=== PATIENT | male | born 1945 | race African-American/Black ===

== ENCOUNTER 2016-06-29 08:09 | Inpatient (IN) ==
--- NOTE | 2016-06-28 20:55 | Discharge Summary ---
<Ewelina Anand - Last Filed: 06/28/16 20:53> Date of Encounter: 06/28/16 - Discharge Diagnosis (1) Rotator cuff tear arthropathy of right shoulder Priority: Primary Status: Acute - Discharge Medications Home Medications: Amlodipine [Norvasc] 5 mg PO DAILY 12/09/15 [History] Aspirin Enteric Coated [Aspirin EC] 81 mg PO DAILY 12/09/15 [History] Dorzolamide HCl/Timolol Maleat [Dorzolamide-Timolol Eye Drops] 1 drop BOTH EYES BID 12/09/15 [History] Lisinopril 40 mg PO DAILY 12/09/15 [History] OxyCODONE Immed Rel [Roxicodone 5 MG] 5 - 10 mg PO Q6HR PRN #40 tablet 06/28/16 [Rx] HYDROcodone/Acet 5/325 mg [[place] 5-325 mg] 1 tab PO Q6H PRN 06/29/16 [History] Multivit-Min/FA/Lycopen/Lutein [Men 50 Plus Multivitamin Tab] 1 tab PO DAILY [History] Naproxen Sodium [Aleve] 220 mg PO BID PRN 06/29/16 [History] Allergies/Adverse Reactions: Allergies No Known Allergies Allergy (Verified 12/09/15 07:26) Primary care physician: Marcos Fritz MD - Patient Status Disposition: Home, Self-Care Condition: Good - Discharge Instructions Follow Up With: Christopher Mendenhall MD [Partnered Physician] - 07/28/16 10:15 am Ewelina Anand PAC [Physician Life Claims Examiner] - 07/10/16 10:30 am Marcos Fritz MD [Primary Care Provider] - 08/11/16 9:00 am Mauricio Mckeon Jr, MD [Partnered Physician] - 12/24/16 10:30 am - Hospital Course Hospital course: Mr. Rivera is a 71 year old male - Time Spent with Patient Total time spent providing and/or coordinating discharge services: <Christopher Mendenhall - Last Filed: 06/30/16 06:26> Date of Encounter: 06/30/16 Time of Encounter: 06:26 Primary care physician: Marcos Fritz MD - Patient Status Functional capacity at discharge: independent ambulation Overall status at discharge: patient is progressing back to baseline - Hospital Course Hospital course: Mr. Rivera is a 71 year old male The patient had an uneventful postoperative course. They received antibiotics and physical therapy and were discharged in stable condition. There will follow -up in the office in 2 weeks. - Time Spent with Patient Total time spent providing and/or coordinating discharge services:
--- NOTE | 2016-06-29 08:16 | History & Physical Report ---
Date of Encounter: 06/29/16 Time of Encounter: 08:16 24 Hour HP Update - Instructions Instructions: If the History and Physical is less than 30 days old and was completed prior to A.M. admission and or procedure and has NOT been updated on calendar day of procedure please complete this update prior to performing procedure. - Update Patient reports changes in Medical Condition: No Changes in assessment/condition: No Changes in Medication: No Preop tests/diagnostics Reviewed: Yes Surgery Remains Indicated: Yes Consent for Planned Operative Procedure(s) Verified: Yes - Pre-Operative Checklist Preoperative Checklist Indicated: No Prophylactic Antibiotic Ordered: Yes Is VTE Prophylaxis Indicated?: Yes
[2016-06-29] MEDS ORDERED: CeFAZolin Pre 2,000 MG/100 ML 2,000 MG/100 ML BAG IVPB ONE (08:50)
--- NOTE | 2016-06-29 08:51 | Anesthesia Evaluation PreOp ---
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) Other Medical History: Denies Any Significant HX Anesthesia History: No Prior Anesthetic Complications Alcohol Use: none Drug use: none Medications and Allergies Amlodipine [Norvasc] 5 mg PO DAILY 12/09/15 [History] Aspirin Enteric Coated [Aspirin EC] 81 mg PO DAILY 12/09/15 [History] Dorzolamide HCl/Timolol Maleat [Dorzolamide-Timolol Eye Drops] 1 drop BOTH EYES BID 12/09/15 [History] Lisinopril 40 mg PO DAILY 12/09/15 [History] OxyCODONE Immed Rel [Roxicodone 5 MG] 5 - 10 mg PO Q6HR PRN #40 tablet 06/28/16 [Rx] Allergies No Known Allergies Allergy (Verified 12/09/15 07:26) - Meds/Allergy Pre-op Review Medications Reviewed: Yes Allergies Reviewed: Yes Beta Blockers on Current Med List: No Anesthesia Results - Labs Laboratory Tests 06/16/16 06/16/16 06/16/16 11:15 11:15 11:15 WBC 5.7 Hgb 13.8 Hct 40.0 Plt Count 241 PT 12.3 H INR 1.1 APTT 30.6 Sodium 139 Potassium 4.0 Chloride 107 Carbon Dioxide 22 BUN 13 Creatinine 1.18 Est GFR ( Amer) > 60 Est GFR (Non-Af Amer) > 60 BUN/Creatinine Ratio 11 - Imaging EKG: report reviewed, image reviewed (SR) Anesthesia Exam Last Vital Signs Temp 98.2 F 06/29/16 08:28 Pulse 88 06/29/16 08:28 Resp 18 06/29/16 08:28 BP 146/93 06/29/16 08:28 Pulse Ox 96 06/29/16 08:28 Weight: 79 kg NPO (# of Hours): >> 8 hrs - HEENT Pupil (Motor): Pupils equal, EOMI Mallampati: II Teeth: Poor dentition Oral Opening: Greater than 3 - ASSEMBLER TUBING LOC: Oriented - Cardiac Rhythm: Regular Murmur: None - Pulmonary Breath Sounds: bilateral Clear Respiratory Effort: Symmetrical Anesthesia Assess/Plan ASA Score: 2 Modified Mary D Scale for Level of Consciousness: Cooperative, oriented, and tranquil Anesthetic Plan: General, Regional Monitoring Plan: Standard Monitors Recovery Plan: PACU
[2016-06-29] MEDS ORDERED: *HR* FentaNYL (PF) 100 MCG/2 ML VIAL ONE (09:09)
[2016-06-29] MEDS ORDERED: *HR* Midazolam HCl 2 MG/2 ML VIAL ONE (09:09)
[2016-06-29] MEDS ORDERED: *HR* Propofol 200 MG/20 ML VIAL IVP ONE (09:10)
[2016-06-29] MEDS ORDERED: Lidocaine -MPF 2% 2 ML VIAL ONE (09:10)
[2016-06-29] MEDS: Ringers Solution, Lactated 1,000 ML IVC SCH ×4 (09:18→21:05)
[2016-06-29] MEDS ORDERED: Bupivacaine-MPF 0.25% 10 ML VIAL ONE (10:04)
--- NOTE | 2016-06-29 10:26 | Anesthesia Procedures ---
Date of Encounter: 06/29/16 Time of Encounter: 10:24 Procedures: Anesthesia - Nerve Block Procedure Date: 06/29/16 Time: 10:24 Allergies/Adv Reactions: Allergies No Known Allergies Allergy (Verified 12/09/15 07:26) Pre-op Diagnosis: right rotator cuff arthropathy Surgical Procedure: right shoulder reverse ball Checklist: Correct Patient Identifier, Correct procedure, History checked Correct side: Right Blood Thinner: No Monitor Applied: EKG, BP, Pulse Oximetry Supplemental Oxygen via Nasal Cannula (L/min): 2 Sedation: Versed (mg): 2 Sedation: Fentanyl (mcg): 100 Indication: Post Op Analgesia Pre-op Neuro Deficits: No Block Type: Supraclavicular Catheter placed: No Sterile Technique: Yes Ultrasound used: Yes Anatomy identified: Yes Visual spread of Local: Yes Neuro Stimulation: Yes Nerve Stimulator Range: 0.2 - 0.4 mA Blood on Needle Aspiration: No Smooth Injection of Local: Yes Pain with Injection of Local: No Prep: Chlorhexadine Needle: 22 x 50 mm Stimuplex Local: 0.25% Bupivicaine w/Clonidine 20 mcg/cc Volume (cc): 30 Number of Attempts: 1 Complications: None/effective block Vitals: Vital Signs/O2 Sat, Most Current Temp Pulse Resp BP Pulse Ox 98.2 F 79 18 132/84 98 06/29/16 08:58 06/29/16 10:15 06/29/16 08:58 06/29/16 10:15 06/29/16 10:15 Comments: peripheral nerve block with ultrasound for postoperative pain relief per dr warren request
[2016-06-29] MEDS ORDERED: *HR* Labetalol 100 MG/20 ML MDV IVP PRN (10:27)
--- NOTE | 2016-06-29 11:18 | Orthopedic Operative Note ---
Date of procedure: 06/29/16 Pre-op diagnosis: Right shoulder cuff tear arthropathy Post-op diagnosis: same Procedure: Procedure: Right Total Shoulder Replacment Reverse, biceps tenodesis Estimated blood loss: 100 cc Hardware:Arthrex large glenoid baseplate, 2 4.5 screws. 1 6.5 screw, 42 lateral glenosphere, 13 humeral stem, poly insert 3 and 6 metal Exam Under anesthesia: Full motion and no instability Procedural Notes: Irreparable tear supraspinatus tendon grade 4 arthritic changes humeral head Operative procedure: The patient was brought to the operating room and placed on the operating room table. After general anesthesia was administered the operative shoulder was examined. Findings were noted. The patient was placed in the modified beachchair position. All pressure points were padded appropriately. And the head was stabilized in the neutral position. The operative extremity was prepped and draped in the sterile surgical fashion. The patient received IV antibiotics prior to skin incision. A standard deltopectoral approach was made to the operative shoulder. Incision was made to the skin and subcutaneous tissue,hemo stasis was obtained with Bovie cautery. Using careful blunt dissection the cephalic vein was identified and mobilized medially. The deltopectoral interval was developed and the clavipectoral fascia was incised. The subscap was released off the lesser tuberosity and tagged with #2 FiberWire suture. The humerus was dislocated patient noted to have irreparable tear supraspinatus tendon, and the humeral cut was made along the anatomic neck, patient noted to have grade 4 arthritic changes humeral head.. Anterior and posterior Bankart retractors were placed to expose the glenoid. The glenoid guide was seated and the centering hole was made. It was reamed with the appropriate reamer. The large baseplate was seated and secured with (2) 4.5 screws and one 6.5 screw. The baseplate was irrigated and dried and the 42 lateral Glenosphere was seated and secured with the Garcia taper. The Garcia taper was tested and found to be secure the humerus was redislocated and prepared with the diaphyseal reamers, followed by a broaching process up to the appropriate size 13 in the patient's anatomic version. The metaphyseal reamer was then utilized. Trial reduction found the shoulder to be relocatable. Trial components were removed and drill holes were placed in the lesser tuberosity. They were filled with #5 FiberWire suture. These sutures were used for a subscap repair. The appropriate 13 stem was impacted in place in the patient's anatomic version. Trial reduction found the shoulder to be relocatable and stable with the appropriate 6 metal 3 Abida Trial component was removed and the real 6 metal 3 Abida was seated and secured the shoulder was reduced. The shoulder had excellent motion and excellent stability and no evidence of dislocation. The deep tissue was irrigated with pulse irrigation. The subscap was repaired. The deltopectoral interval was closed with a running #1 PDS suture, subcutaneous tissue was irrigated and closed with 0 PDS suture, the skin was closed with Dermabond. The patient was placed in a sterile dressing, abduction brace and extubated. The patient was then transferred to the recovery room in stable condition. Anesthesia: GETA Surgeon: Christopher Mendenhall Condition: stable Disposition: PACU
[2016-06-29] MEDS: *HR* HYDROmorphone (PF) 1 MG/ML SYRINGE IVP PRN ×2 (11:37→11:42)
[2016-06-29 11:56] LABS: Hematocrit 36.3 % (37.5-50.1); Hemoglobin 12.1 g/dL (12.9-16.9)
[2016-06-29] MEDS ORDERED: Acetaminophen 325 MG TABLET PO PRN (12:20)
[2016-06-29] MEDS ORDERED: Sennosides 8.6 MG TABLET PO PRN (12:20)
[2016-06-29] MEDS ORDERED: *HR* OxyCODONE Immed Rel 5 MG TABLET PO PRN (12:20)
[2016-06-29] MEDS ORDERED: Ondansetron 4 MG/2 ML VIAL IVP PRN (12:20)
[2016-06-29] MEDS ORDERED: MOM Conc 10 ML UD.LIQ PO PRN (12:20)
[2016-06-29] MEDS ORDERED: Temazepam 15 MG CAPSULE PO PRN (12:20)
[2016-06-29] MEDS ORDERED: Naloxone 0.4 MG/ML INJ IVP PRN (12:20)
--- NOTE | 2016-06-29 12:24 | Anesthesia Evaluation Post Op ---
Date of Encounter: 06/29/16 Time of Encounter: 12:22 - Vital Signs Vital Signs: Vital Signs/O2 Sat, Most Current Temp Pulse Resp BP Pulse Ox 97.4 F L 77 16 123/92 96 06/29/16 12:13 06/29/16 12:13 06/29/16 12:13 06/29/16 12:13 06/29/16 12:13 - Lungs Lungs: Clear Ascult./Percussion - Airway Airway: Non-obstructed - Cardiovascular Regular Rate - Mental Status Mental Status: Alert & Oriented, Answers Appropriately - Pain Pain Scale: 0 Pain Scale used: Numeric (1 - 10) - Nausea Vomiting Nausea Vomiting: Not Present - Hydration Hydration: NPO - Discharge PostOp Status: Transfer Patient to floor
[2016-06-29] MEDS: *HR* Enoxaparin 30 MG/0.3 ML SYRINGE SQ SCH (17:18)
[2016-06-29] MEDS: ceFAZolin 2,000 MG in D5% in Water 100 ML IVPB SCH ×2 (17:19→23:57)
[2016-06-29] MEDS ORDERED: *HR* Enoxaparin 30 MG/0.3 ML SYRINGE SQ SCH (18:00)
[2016-06-29] MEDS: Dorzolamide/Timolol OPTH 10 ML BOTTLE BOTH EYES SCH (21:04)
[2016-06-29] MEDS: *HR* OxyCODONE Immed Rel 5 MG TABLET PO PRN (23:56)
[2016-06-30] MEDS: *HR* HYDROmorphone (PF) 1 MG/ML SYRINGE IVP PRN ×2 (02:02→10:56)
[2016-06-30 03:34] LABS: Hematocrit 34.3 % (37.5-50.1); Hemoglobin 11.5 g/dL (12.9-16.9)
[2016-06-30] MEDS: *HR* OxyCODONE Immed Rel 5 MG TABLET PO PRN ×4 (05:36→20:16)
[2016-06-30] MEDS: *HR* Enoxaparin 30 MG/0.3 ML SYRINGE SQ SCH ×2 (05:37→17:28)
--- NOTE | 2016-06-30 06:27 | Orthopedics Progress Note ---
Date of Encounter: 06/30/16 Time of Encounter: 06:26 Subjective Interval history: Patient was seen this morning doing well without complaints. Afebrile vital signs stable. Operative extremity: Neurovascularly intact Dressing clean dry and intact Calves nontender Assessment and plan: Continue with postoperative care Hematocrit 34 discharged today Objective Vital signs: Vital Signs Temp Pulse Resp BP Pulse Ox 06/30/16 03:51 98.9 F 100 18 148/88 97 06/30/16 00:00 98.7 F 97 17 143/83 96 06/29/16 19:40 97.9 F 95 19 132/69 96 06/29/16 15:30 97.5 F L 91 16 129/61 96 06/29/16 14:30 86 14 145/91 93 L 06/29/16 13:30 97.7 F 82 15 136/72 98 06/29/16 12:58 97.7 F 82 16 131/82 96 06/29/16 12:30 97.6 F 78 14 126/80 95 06/29/16 12:13 97.4 F L 77 16 123/92 96 06/29/16 12:03 97.4 F L 79 16 119/78 96 06/29/16 11:53 80 14 102/76 96 06/29/16 11:43 84 16 129/76 96 06/29/16 11:33 97.6 F 92 20 135/69 94 L 06/29/16 10:15 79 132/84 98 06/29/16 10:03 75 156/88 99 06/29/16 08:58 98.2 F 88 18 146/93 96 06/29/16 08:28 98.2 F 88 18 146/93 96 Intake and Output 06/29/16 06/29/16 06/30/16 15:59 23:59 07:59 Intake Total 1100 / 1100 1500 / 1500 900 / 900 Output Total 100 / 100 1000 / 1000 1000 / 1000 Balance 1000 / 1000 500 / 500 -100 / -100 Intake: IV Fluids 1100 / 1100 1100 / 1100 100 / 100 Lactated Ringers 1,000 ML 1000 / 1000 1000 / 1000 @ 75 mls/hr IVC .[id number] MOOKIE Rx#:[id number] Ancef 2,000 MG In 100 / 100 100 / 100 Dextrose 5% 100 ML @ 200 mls/hr IVPB Q8H MOOKIE Rx#: [id number] Ancef Premix 2,000 MG/100 100 / 100 ML 2,000 mg In 100 ml @ 200 mls/hr IVPB PREOP ONE Rx#:[id number] Oral 400 / 400 800 / 800 Output: Urine 1000 / 1000 1000 / 1000 Estimated Blood Loss 100 / 100 Other: # Voids 1 Weight 79.379 kg - Labs CBC & BMP: 06/30/16 03:19 Labs: Abnormal lab results Hgb 11.5 g/dL (12.9-16.9) L 06/30/16 03:19 Hct 34.3 % (37.5-50.1) L 06/30/16 03:19 - VTE Documentation of Mechanical Device: Venous foot pump, device Consult Discharge Plan - Plan Referrals: Christopher Mendenhall MD [Partnered Physician] - 07/28/16 10:15 am Ewelina Anand, PAC [Physician Windows Systems Admin] - 07/10/16 10:30 am Marcos Fritz MD [Primary Care Provider] - 08/11/16 9:00 am Mauricio Mckeon Jr, MD [Partnered Physician] - 12/24/16 10:30 am
[2016-06-30] MEDS: Lisinopril 20 MG TABLET PO SCH (09:22)
[2016-06-30] MEDS: Aspirin Enteric Coated 81 MG Tablet PO SCH (09:23)
[2016-06-30] MEDS: Dorzolamide/Timolol OPTH 10 ML BOTTLE BOTH EYES SCH ×2 (09:23→19:52)
[2016-06-30] MEDS: amLODIPine 5 MG TABLET PO SCH (09:23)
[2016-06-30] MEDS: Multivit/Ca/Min/Fe/FA 1 TAB TABLET PO SCH (09:23)
[2016-06-30 14:58] LABS: BUN/Creatinine Ratio 13 (6-26); Blood Urea Nitrogen 17 mg/dL (8-26); Calcium 9.2 mg/dL (8.6-10.8); Carbon Dioxide 22 mEq/L (19-29); Chloride 104 mEq/L (98-109); Glucose 181 mg/dL (70-99); Osmolality,Calculated 288 (280-300); Potassium 4.9 mEq/L (3.5-4.5); Sodium 136 mEq/L (136-145); eGFR For African Americans > 60 (> 60); eGFR For Non-African Americans 52 (> 60)
[2016-06-30 15:17] LABS: ABG Base Excess 1.1 mEq/L (-2.0 to 3.0); ABG HCO3 26.6 mEQ/L (21-27); ABG Oxygen Saturation 89 % (95-98); ABG PCO2 45 mmHg (35-45); ABG PH 7.38 pH Units (7.32-7.45); ABG PO2 58 mmHg (85-104); Blood Gas FiO2 28 %; Blood Gas Liter Flow 2 L/MIN
--- NOTE | 2016-06-30 18:53 | Internal Medicine Consult Note ---
Date of Encounter: 06/30/16 Time of Encounter: 18:48 - Assessment and Plan (1) Shortness of breath Status: Acute Assessment and plan: likely COPD exacerbation : plan -blood culture - IV antibiotics - IV steroids - Inhaled BDAs if no contraindication from ortho then hospitalist will be happy to take over. Internal Medicine - CN: HPI - Data of Consult Patient: new to practice Consult date: 06/30/16 Requesting Physician: Christopher Mendenhall MD - Consult Narrative History of present illness: Mr. Rivera is a 71 year old male who underwent right shoulder surgery yesterday. patient was supposed to go home and it was noted that he had episode of desaturation. his Oxygen saturation was 85 on RA and with supplimental oxygen it was above 92%. patient. patient denied chest pain or dizziness. patient is known smoker and stopped smoking 8 weeks back. he used to smoke more than a pack a day for more than 50 years. patient underwent CTA and it was negative for PE. Past Med Surg Social Fam HX - Past Medical History Medical history: hypertension, other Psychiatric history: no psych history - Past Surgical History Surgical History: cataract - Social History Smoking Status: Former smoker Smokeless Tobacco Status: No Alcohol use: none Drug use: none - Family History Mother Hx Family Cancer: Yes (pancreatic) Father Hx Family Endocrine Disorder: Yes (DM) All systems: reviewed and no additional remarkable complaints except as stated Internal Medicine - CN: Meds Amlodipine [Norvasc] 5 mg PO DAILY 12/09/15 [History] Aspirin Enteric Coated [Aspirin EC] 81 mg PO DAILY 12/09/15 [History] Dorzolamide HCl/Timolol Maleat [Dorzolamide-Timolol Eye Drops] 1 drop BOTH EYES BID 12/09/15 [History] Lisinopril 40 mg PO DAILY 12/09/15 [History] OxyCODONE Immed Rel [Roxicodone 5 MG] 5 - 10 mg PO Q6HR PRN #40 tablet 06/28/16 [Rx] HYDROcodone/Acet 5/325 mg [[place] 5-325 mg] 1 tab PO Q6H PRN 06/29/16 [History] Multivit-Min/FA/Lycopen/Lutein [Men 50 Plus Multivitamin Tab] 1 tab PO DAILY [History] Naproxen Sodium [Aleve] 220 mg PO BID PRN 06/29/16 [History] Albuterol Sulfate [Albuterol Inhaler] 2 puff IH Q4HR PRN #1 hfa.aer.ad 07/01/16 [Rx] Budesonide/Formoterol 80/4.5 [Symbicort 80/4.5] 1 gm IH BIDR #1 hfa.aer.ad 05/19 [Rx] Levofloxacin 750 mg PO DAILY #3 tablet 07/01/16 [Rx] PredniSONE 10 mg PO DAILY #7 tablet 07/01/16 [Rx] Allergies No Known Allergies Allergy (Verified 12/09/15 07:26) Internal Medicine - CN: Exam - Constitutional Vitals: Temp Pulse Resp BP Pulse Ox 99.6 F 93 18 146/77 92 L 06/30/16 15:38 06/30/16 15:38 06/30/16 15:38 06/30/16 15:38 06/30/16 15:38 General appearance IM: Present: A&O X 3, pleasant, no acute distress, answers questions appropriately Exam: i have examined this patient. examination of HEENT is with in normal limits. Respiratory and cardiac system does not have any abnormality except occasional wheeze. abdomen is soft and non tender. 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 skin is intact. - Head Head exam: Present: atraumatic - Eye Eye exam: Present: PERRL - ENT ENT exam: Present: normal exam - Neck Neck exam general surgery: Present: full ROM - Respiratory Respiratory exam: Present: CTAB Internal Medicine - CN: Reslt - Labs CBC & Chem 7: 07/01/16 03:49 06/30/16 14:33 Labs: Short CBC 06/30/16 Range/Units 03:19 Hgb 11.5 L (12.9-16.9) g/dL Hct 34.3 L (37.5-50.1) % BMP 06/30/16 14:33 Sodium 136 Potassium 4.9 H Chloride 104 Carbon Dioxide 22 BUN 17 Creatinine 1.35 H Glucose 181 H Calcium 9.2 - ABG Interpretation ABG results: ABG ABG pH 7.38 pH Units (7.32-7.45) 06/30/16 15:02 ABG pCO2 45 mmHg (35-45) 06/30/16 15:02 ABG pO2 58 mmHg (85-104) L 06/30/16 15:02 ABG O2 Saturation 89 % (95-98) L 06/30/16 15:02 - Impressions Impressions Chest CTA 06/30/16 13:47 IMPRESSION: 1. No pulmonary embolus. 2. No acute cardiopulmonary disease. 3. Probable scarring identified in the right upper lobe, however, no prior studies are available for comparison. Recommend repeat chest CT without contrast in 6 months to ensure stability. 4. Moderate emphysema. 5. Postoperative changes compatible with right shoulder arthroplasty. D/ / 06/30/2016 17:06:18 Leonie Prather MD / britany Interpreting Provider: Leonie Prather MD Consult Discharge Plan - Plan Instructions: Using Oxygen at Home (DC) Additional Instructions: Discharge Instructions: Total Shoulder Please call [facility] ([phone]), your Primary Care Physician, or report to the Emergency Room if you have any of the following symptoms: Nausea, vomiting, fever greater that 101.5, swelling, chest pain, shortness of breath, increased pain/redness/drainage/odor for your incision site, numbness/ tingling, or any other concerning symptoms. ACTIVITY: Always keep your arm in the sling. Do not raise your arm away from your body. Do not use your arm to help with getting in or out of bed. No weight bearing permitted. Only perform those exercises given to you by your therapist. MEDICATIONS: Upon discharge resume your home medications. Take all the medications as prescribed. Take a stool softener if taking narcotic pain medications. Stool softeners are only effective if you drink enough fluids. Drink 6-8 glass of water or fluids a day, unless this is not allowed for another health problem. Despite using stool softeners, if you haven't had a bowel movement in 3 days, please switch to a gentle laxative. Gentle laxatives are sold over the counter. You should have a bowel movement within 24 hours, if not call the office. You will be discharged from the hospital with a prescription for pain medication. You are encouraged to decrease the use of narcotic pain medication as tolerated. Should you require a refill, please call the office. [facility] prescribes narcotic pain medication for only 4-6 weeks after surgery. If you require pain medication beyond this time period, you may be referred to your Primary Care Physician or to the Pain Clinic for further evaluation. Plan ahead for refills on pain medication as many narcotics either need to be picked up at the office or mailed. It is best to call 48-72 hours in advance of needing a prescription refill so you don't run out of medication. To help control the post-operative pain, you may take NSAIDs (Aleve,Advil, Motrin, ibuprofen, naprosyn) or Tylenol as prescribed on the bottle in addition to the pain medication. WOUND CARE: Leave the dressing on for 7 days. You may change the dressing if it becomes saturated greater than 50%. You can shower but not a tub bath or submerge your incision in water. Wash your hands with antibacterial soap, rinse and dry prior to any wound care. If you have alberto the visiting nurse or rehab facility can remove the stapes 10-14 days after surgery and place steri -strips across the wound. Leave the steri-strips in place until they fall off on their won. You may let water from the shower run on top of the steri- stirips. If you do not have a visiting nurse or rehab facility, you will need to return to the office at 10-14 days for the alberto to be removed. FOLLOW-UP: Please follow up with your surgeon in the orthopedic clinic, as scheduled Referrals: Christopher Mendenhall MD [Partnered Physician] - 07/28/16 10:15 am Ewelina Anand PAC [Physician Traffic Maintenance Officer] - 07/10/16 10:30 am Marcos Fritz MD [Primary Care Provider] - 08/11/16 9:00 am Mauricio Mckeon Jr, MD [Partnered Physician] - 12/24/16 10:30 am Prescriptions: Albuterol Sulfate [Albuterol Inhaler] 2 puff IH Q4HR PRN #1 hfa.aer.ad PRN Reason: wheezing shortness of breath Budesonide/Formoterol 80/4.5 [Symbicort 80/4.5] 1 gm IH BIDR #1 hfa.aer.ad Levofloxacin 750 mg PO DAILY #3 tablet PredniSONE 10 mg PO DAILY #7 tablet
[2016-06-30] MEDS ORDERED: Levofloxacin 750 MG/150 ML 750 MG/150 ML BAG IVPB SCH (20:00)
[2016-06-30] MEDS: Ipratropium/Albuterol Neb 3 ML IH SCH (21:36)
[2016-06-30] MEDS: MethylPREDNISolone 40 MG/ML VIAL IVP SCH (23:31)
[2016-07-01] MEDS: Ipratropium/Albuterol Neb 3 ML IH SCH ×5 (00:10→16:08)
[2016-07-01 04:22] LABS: Hematocrit 30.7 % (37.5-50.1); Hemoglobin 10.8 g/dL (12.9-16.9)
[2016-07-01] MEDS: *HR* Enoxaparin 30 MG/0.3 ML SYRINGE SQ SCH (05:28)
--- NOTE | 2016-07-01 07:49 | Orthopedics Progress Note ---
Date of Encounter: 07/01/16 Time of Encounter: 07:49 Subjective Interval history: Patient was seen this morning doing well without complaints. Doing better this morning Afebrile vital signs stable. Operative extremity: Neurovascularly intact Dressing clean dry and intact Calves nontender Assessment and plan: Continue with postoperative care discharged today Objective Vital signs: Vital Signs Temp Pulse Resp BP Pulse Ox 07/01/16 07:30 16 94 L 07/01/16 06:36 98.2 F 94 16 135/76 94 L 07/01/16 05:23 99.0 F 93 16 130/77 93 L 07/01/16 04:32 18 94 L 07/01/16 00:31 100.9 F H 93 16 148/69 93 L 07/01/16 00:12 18 95 06/30/16 20:15 100.4 F H 104 17 138/76 95 06/30/16 20:00 95 06/30/16 15:38 99.6 F 93 18 146/77 92 L 06/30/16 13:14 96 06/30/16 13:13 69 L 06/30/16 11:15 98.7 F 83 16 134/55 93 L 06/30/16 09:15 99 16 130/72 94 L 06/30/16 09:13 72 L Intake and Output 06/30/16 06/30/16 07/01/16 15:59 23:59 07:59 Intake Total 150 / 150 Output Total 450 / 450 Balance -300 / -300 Intake: IV Fluids 150 / 150 Levaquin 750mg/150 mL 750 150 / 150 mg In 150 ml @ 100 mls/ hr IVPB Q24H [facility] Rx#: [id number] Output: Urine 450 / 450 Other: # Voids 1 - Labs CBC & BMP: 07/01/16 03:49 06/30/16 14:33 Labs: Abnormal lab results Hgb 10.8 g/dL (12.9-16.9) L 07/01/16 03:49 Hct 30.7 % (37.5-50.1) L 07/01/16 03:49 ABG pO2 58 mmHg (85-104) L 06/30/16 15:02 ABG Total CO2 28.0 mEq/L (20-26) H 06/30/16 15:02 ABG O2 Saturation 89 % (95-98) L 06/30/16 15:02 Potassium 4.9 mEq/L (3.5-4.5) H 06/30/16 14:33 Creatinine 1.35 mg/dL (0.72-1.25) H 06/30/16 14:33 Est GFR (Non-Af Amer) 52 (> 60) L 06/30/16 14:33 Glucose 181 mg/dL (70-99) H 06/30/16 14:33 - VTE Documentation of Mechanical Device: Venous foot pump, device Consult Discharge Plan - Plan Instructions: Using Oxygen at Home (DC) Additional Instructions: Discharge Instructions: Total Shoulder Please call [facility] ([phone]), your Primary Care Physician, or report to the Emergency Room if you have any of the following symptoms: Nausea, vomiting, fever greater that 101.5, swelling, chest pain, shortness of breath, increased pain/redness/drainage/odor for your incision site, numbness/ tingling, or any other concerning symptoms. ACTIVITY: Always keep your arm in the sling. Do not raise your arm away from your body. Do not use your arm to help with getting in or out of bed. No weight bearing permitted. Only perform those exercises given to you by your therapist. MEDICATIONS: Upon discharge resume your home medications. Take all the medications as prescribed. Take a stool softener if taking narcotic pain medications. Stool softeners are only effective if you drink enough fluids. Drink 6-8 glass of water or fluids a day, unless this is not allowed for another health problem. Despite using stool softeners, if you haven't had a bowel movement in 3 days, please switch to a gentle laxative. Gentle laxatives are sold over the counter. You should have a bowel movement within 24 hours, if not call the office. You will be discharged from the hospital with a prescription for pain medication. You are encouraged to decrease the use of narcotic pain medication as tolerated. Should you require a refill, please call the office. [facility] prescribes narcotic pain medication for only 4-6 weeks after surgery. If you require pain medication beyond this time period, you may be referred to your Primary Care Physician or to the Pain Clinic for further evaluation. Plan ahead for refills on pain medication as many narcotics either need to be picked up at the office or mailed. It is best to call 48-72 hours in advance of needing a prescription refill so you don't run out of medication. To help control the post-operative pain, you may take NSAIDs (Aleve,Advil, Motrin, ibuprofen, naprosyn) or Tylenol as prescribed on the bottle in addition to the pain medication. WOUND CARE: Leave the dressing on for 7 days. You may change the dressing if it becomes saturated greater than 50%. You can shower but not a tub bath or submerge your incision in water. Wash your hands with antibacterial soap, rinse and dry prior to any wound care. If you have alberto the visiting nurse or rehab facility can remove the stapes 10-14 days after surgery and place steri -strips across the wound. Leave the steri-strips in place until they fall off on their won. You may let water from the shower run on top of the steri- stirips. If you do not have a visiting nurse or rehab facility, you will need to return to the office at 10-14 days for the alberto to be removed. FOLLOW-UP: Please follow up with your surgeon in the orthopedic clinic, as scheduled Referrals: Christopher Mendenhall MD [Partnered Physician] - 07/28/16 10:15 am Ewelina Anand PAC [Physician Foreign Clerk] - 07/10/16 10:30 am Marcos Fritz MD [Primary Care Provider] - 08/11/16 9:00 am Mauricio Mckeon Jr, MD [Partnered Physician] - 12/24/16 10:30 am
[2016-07-01] MEDS: Aspirin Enteric Coated 81 MG Tablet PO SCH (07:54)
[2016-07-01] MEDS: Multivit/Ca/Min/Fe/FA 1 TAB TABLET PO SCH (07:54)
[2016-07-01] MEDS: amLODIPine 5 MG TABLET PO SCH (07:55)
[2016-07-01] MEDS: Lisinopril 20 MG TABLET PO SCH (07:55)
[2016-07-01] MEDS: MethylPREDNISolone 40 MG/ML VIAL IVP SCH ×2 (07:55→16:36)
[2016-07-01] MEDS: *HR* OxyCODONE Immed Rel 5 MG TABLET PO PRN ×2 (08:09→18:17)
[2016-07-01] MEDS: Dorzolamide/Timolol OPTH 10 ML BOTTLE BOTH EYES SCH (08:09)
[2016-07-01 11:13] VITALS: BP 124/73
--- NOTE | 2016-07-01 15:51 | Discharge Summary ---
<Mauricio Sullivan - Last Filed: 07/01/16 15:56> Date of Encounter: 07/01/16 Time of Encounter: 15:48 - Discharge Diagnosis (1) Shortness of breath Priority: Secondary Status: Acute Comments: resolved. Likely from COPD. (2) Hypoxemic respiratory failure, chronic Priority: Primary Status: Acute (3) Rotator cuff tear arthropathy of right shoulder Priority: Primary Status: Acute (4) Emphysema lung Priority: Secondary Status: Acute Comments: moderate. Per CT. Qualifiers: Qualified Code(s): J43.9 - Emphysema, unspecified (5) Scarring of lung Priority: Secondary Status: Acute Comments: probable scarring of RUl. should be reevaluated with imaging in 6 month. - Discharge Medications Prescriptions: Albuterol Sulfate [Albuterol Inhaler] 2 puff IH Q4HR PRN #1 hfa.aer.ad PRN Reason: wheezing shortness of breath Budesonide/Formoterol 80/4.5 [Symbicort 80/4.5] 1 gm IH BIDR #1 hfa.aer.ad Levofloxacin 750 mg PO DAILY #3 tablet PredniSONE 10 mg PO DAILY #7 tablet Home Medications: Amlodipine [Norvasc] 5 mg PO DAILY 12/09/15 [History] Aspirin Enteric Coated [Aspirin EC] 81 mg PO DAILY 12/09/15 [History] Dorzolamide HCl/Timolol Maleat [Dorzolamide-Timolol Eye Drops] 1 drop BOTH EYES BID 12/09/15 [History] Lisinopril 40 mg PO DAILY 12/09/15 [History] OxyCODONE Immed Rel [Roxicodone 5 MG] 5 - 10 mg PO Q6HR PRN #40 tablet 06/28/16 [Rx] HYDROcodone/Acet 5/325 mg [[place] 5-325 mg] 1 tab PO Q6H PRN 06/29/16 [History] Multivit-Min/FA/Lycopen/Lutein [Men 50 Plus Multivitamin Tab] 1 tab PO DAILY [History] Naproxen Sodium [Aleve] 220 mg PO BID PRN 06/29/16 [History] Albuterol Sulfate [Albuterol Inhaler] 2 puff IH Q4HR PRN #1 hfa.aer.ad 07/01/16 [Rx] Budesonide/Formoterol 80/4.5 [Symbicort 80/4.5] 1 gm IH BIDR #1 hfa.aer.ad 05/19 [Rx] Levofloxacin 750 mg PO DAILY #3 tablet 07/01/16 [Rx] PredniSONE 10 mg PO DAILY #7 tablet 07/01/16 [Rx] Allergies/Adverse Reactions: Allergies No Known Allergies Allergy (Verified 12/09/15 07:26) Procedures/tests Complete & Pending: Procedures Performed prior 72 hours Category Date Time Status CT angio chest [CT] Stat Cat Scan 06/30/16 13:47 Completed Date of admission: 06/29/16 12:46 Primary care physician: Marcos Fritz MD Consults: 06/29/16 12:20 Consult to Occupational Therapy [CONS] Routine Comment: post shoulder surgery Consult to Physical Therapy [CONS] Routine Comment: post shoulder surgery RT Post Op Consult [CONS] Routine 06/30/16 11:20 Consult to Respiratory Therapy [CONS] Routine Reason for Consult: Decreased SPO2 on room air, no hx of resp issues. Call Completed: No 07/01/16 10:15 Consult to Center Rep [CONS] Routine Reason for SW Consult: home oxygen Discharging clinician: Mauricio Sullivan Anticipated date of discharge: 07/01/16 - Patient Status Disposition: Home Health Service Condition: Good Functional capacity at discharge: independent ambulation Overall status at discharge: patient is progressing back to baseline - Discharge Instructions Instructions: Using Oxygen at Home (DC) Follow Up With: Christopher Mendenhall MD [Partnered Physician] - 07/28/16 10:15 am Ewelina Anand PAC [Physician [employer]] - 07/10/16 10:30 am Marcos Fritz MD [Primary Care Provider] - 08/11/16 9:00 am Mauricio Mckeon Jr, MD [Partnered Physician] - 12/24/16 10:30 am Additional Instructions: Discharge Instructions: Total Shoulder Please call [facility] ([phone]), your Primary Care Physician, or report to the Emergency Room if you have any of the following symptoms: Nausea, vomiting, fever greater that 101.5, swelling, chest pain, shortness of breath, increased pain/redness/drainage/odor for your incision site, numbness/ tingling, or any other concerning symptoms. ACTIVITY: Always keep your arm in the sling. Do not raise your arm away from your body. Do not use your arm to help with getting in or out of bed. No weight bearing permitted. Only perform those exercises given to you by your therapist. MEDICATIONS: Upon discharge resume your home medications. Take all the medications as prescribed. Take a stool softener if taking narcotic pain medications. Stool softeners are only effective if you drink enough fluids. Drink 6-8 glass of water or fluids a day, unless this is not allowed for another health problem. Despite using stool softeners, if you haven't had a bowel movement in 3 days, please switch to a gentle laxative. Gentle laxatives are sold over the counter. You should have a bowel movement within 24 hours, if not call the office. You will be discharged from the hospital with a prescription for pain medication. You are encouraged to decrease the use of narcotic pain medication as tolerated. Should you require a refill, please call the office. [facility] prescribes narcotic pain medication for only 4-6 weeks after surgery. If you require pain medication beyond this time period, you may be referred to your Primary Care Physician or to the Pain Clinic for further evaluation. Plan ahead for refills on pain medication as many narcotics either need to be picked up at the office or mailed. It is best to call 48-72 hours in advance of needing a prescription refill so you don't run out of medication. To help control the post-operative pain, you may take NSAIDs (Aleve,Advil, Motrin, ibuprofen, naprosyn) or Tylenol as prescribed on the bottle in addition to the pain medication. WOUND CARE: Leave the dressing on for 7 days. You may change the dressing if it becomes saturated greater than 50%. You can shower but not a tub bath or submerge your incision in water. Wash your hands with antibacterial soap, rinse and dry prior to any wound care. If you have alberto the visiting nurse or rehab facility can remove the stapes 10-14 days after surgery and [address] steri -strips across the wound. Leave the steri-strips in place until they fall off on their won. You may let water from the shower run on top of the steri- stirips. If you do not have a visiting nurse or rehab facility, you will need to return to the office at 10-14 days for the alberto to be removed. FOLLOW-UP: Please follow up with your surgeon in the orthopedic clinic, as scheduled - Diet and Activity Activity: increase activity as tolerated Diet: advance to your usual diet Hospital course: Mr. Rivera is a 71 year old male who was admitted for an elective total right shoulder replacement. He alps developed wheezing and shortness of breath post operatively A CTA was performed to R/O PE. He did have what appeared to be scarring in the right upper lobe of the lung and should be reevaluated in 6 months. He had moderate emphysema. He was treated with antibiotics, steroids, and bronchodialators. He has had significant improvement. However he did qualify for home O2. Orthopedic surgery has signed off on him. We will discharge him home with Oxygen and home health. Patient voices back agreement and understanding of this plan. - Time Spent with Patient Total time spent providing and/or coordinating discharge services: Less than 30 minutes - Constitutional Vitals: Temp Pulse Resp BP Pulse Ox 97.6 F 88 18 124/73 98 07/01/16 11:12 07/01/16 11:12 07/01/16 11:12 07/01/16 11:12 07/01/16 11:12 General appearance: Present: A&O X 3, pleasant, no acute distress, answers questions appropriately - Head Head exam: Present: atraumatic, normocephalic - Eye Eye exam: Present: PERRL, conjuntiva pink, sclera anicteric Pupils: Present: PERRL - Neck Neck exam general surgery: Present: supple, trachea midline. Absent: lymphadenopathy - Respiratory Respiratory exam: Present: CTAB. Absent: accessory muscle use, rales, rhonchi, wheezes - Cardiovascular Cardiovascular exam: Present: RRR, +S1, +S2. Absent: diastolic murmur, gallop, rubs, systolic murmur - GI/Abdominal GI/Abdominal exam: Present: normal bowel sounds, soft, no peritoneal signs. Absent: distended, tenderness - Extremities Exam Extremities exam: Present: warm, radial pulses palpable and symetrical. Absent : calf tenderness, cyanotic, pedal edema Additional comments: right arm in sling. well dressed. - Skin Skin exam: Present: dry, intact - VTE Documentation of Mechanical Device: Venous foot pump, device <Hardin,Telly R - Last Filed: 07/01/16 17:00> Procedures/tests Complete & Pending: Procedures Performed prior 72 hours Category Date Time Status CT angio chest [CT] Stat Cat Scan 06/30/16 13:47 Completed Date of admission: 06/29/16 12:46 Primary care physician: Marcos Fritz MD Consults: 06/29/16 12:20 Consult to Occupational Therapy [CONS] Routine Comment: post shoulder surgery Consult to Physical Therapy [CONS] Routine Comment: post shoulder surgery RT Post Op Consult [CONS] Routine 06/30/16 11:20 Consult to Respiratory Therapy [CONS] Routine Reason for Consult: Decreased SPO2 on room air, no hx of resp issues. Call Completed: No 07/01/16 10:15 Consult to Center Rep [CONS] Routine Reason for SW Consult: home oxygen Hospital course: Mr. Rivera is a 71 year old male - Time Spent with Patient Total time spent providing and/or coordinating discharge services: - Constitutional Vitals: Temp Pulse Resp BP Pulse Ox 97.6 F 88 18 124/73 98 07/01/16 11:12 07/01/16 11:12 07/01/16 16:09 07/01/16 11:12 07/01/16 16:09 - Attending Attestation I examined this patient and my medical decision-making was reviewed with the CABLEWAY OPERATOR/PA/Advanced Practice Nurse/Resident Physician. I agree with the documented findings, disposition and treatment plan as described except to the extent set forth below. COPD exacerbation, d/c on steroids and po levaquin. D/w residnet.
--- NOTE | 2016-07-01 15:56 | Physician Discharge Referral ---
Home Health/Hosp Referral Info Transfer to: Home Health Provider in Charge Post Discharge: PCP - Diagnosis (1) Shortness of breath Status: Acute (2) Hypoxemic respiratory failure, chronic Status: Acute (3) Rotator cuff tear arthropathy of right shoulder Status: Acute (4) Emphysema lung Status: Acute (5) Scarring of lung Status: Acute - Respiratory Orders Oxygen / L per min (2L) Smoking Cessation: Smoking cessation has been advised. For more information, call the [place] Tobacco Quit Line at 4-743-GBVJ-NOW. - Diet/Nutrition Diet/Nutrition Orders: Cardiac - Activity Activity Orders: Ambulate - Services Needed Following services are medically necessary services: Home Health Aide, Physical Therapy, Occupational Therapy - Transfer Medications Prescriptions: Albuterol Sulfate [Albuterol Inhaler] 2 puff IH Q4HR PRN #1 hfa.aer.ad PRN Reason: wheezing shortness of breath Budesonide/Formoterol 80/4.5 [Symbicort 80/4.5] 1 gm IH BIDR #1 hfa.aer.ad Levofloxacin 750 mg PO DAILY #3 tablet PredniSONE 10 mg PO DAILY #7 tablet Home Medications: Amlodipine [Norvasc] 5 mg PO DAILY 12/09/15 [History] Aspirin Enteric Coated [Aspirin EC] 81 mg PO DAILY 12/09/15 [History] Dorzolamide HCl/Timolol Maleat [Dorzolamide-Timolol Eye Drops] 1 drop BOTH EYES BID 12/09/15 [History] Lisinopril 40 mg PO DAILY 12/09/15 [History] OxyCODONE Immed Rel [Roxicodone 5 MG] 5 - 10 mg PO Q6HR PRN #40 tablet 06/28/16 [Rx] HYDROcodone/Acet 5/325 mg [[place] 5-325 mg] 1 tab PO Q6H PRN 06/29/16 [History] Multivit-Min/FA/Lycopen/Lutein [Men 50 Plus Multivitamin Tab] 1 tab PO DAILY [History] Naproxen Sodium [Aleve] 220 mg PO BID PRN 06/29/16 [History] Albuterol Sulfate [Albuterol Inhaler] 2 puff IH Q4HR PRN #1 hfa.aer.ad 07/01/16 [Rx] Budesonide/Formoterol 80/4.5 [Symbicort 80/4.5] 1 gm IH BIDR #1 hfa.aer.ad 05/19 [Rx] Levofloxacin 750 mg PO DAILY #3 tablet 07/01/16 [Rx] PredniSONE 10 mg PO DAILY #7 tablet 07/01/16 [Rx] Allergies/Adverse Reactions: Allergies No Known Allergies Allergy (Verified 12/09/15 07:26) Certification: Further, I certify that my clinical findings support that this patient is homebound (i.e. absences from home require considerable and taxing effort and are for medical reasons or [employer] services or infrequently or short duration when for other reasons) because: Homebound Reason: Post-surgery restriction and or conditions limit ability to leave home, Severity of cardiac or pulmonary status limits activity tolerance Attestation: My signature below is to certify that this patient is under my care and that I, or nurse practitioner, or a physician's assistant product manager working with me, has a face-to -face encounter with this patient.
== END 2016-07-01 19:00 | disposition home health service (06) | DRG 483 ==
LOC: SAMDAY 08:09 → 3NENU 12:46
PROVIDERS: ADMIT Orthopaedic Surgery; ATTEND Orthopaedic Surgery

== ENCOUNTER 2021-04-02 06:35 | Observation (INO) ==
[2021-04-02] MEDS ORDERED: Vancomycin 1,000 MG VIAL ONE (06:45)
[2021-04-02] MEDS ORDERED: Ringers Solution, Lactated 1,000 ML IVC SCH (07:15)
[2021-04-02] MEDS ORDERED: CeFAZolin Syr 2,000MG/20 ML 2,000 MG/20 ML SYRINGE IVPB ONE (07:15)
[2021-04-02] MEDS ORDERED: Acetaminophen IV 1,000 MG/100 ML BAG IVPB ONE (07:15)
[2021-04-02] MEDS ORDERED: Famotidine 20 MG/2 ML VIAL IVP ONE (07:15)
[2021-04-02] MEDS ORDERED: *HR* Succinylcholine 200 MG/10 ML VIAL IVP ONE (07:20)
[2021-04-02] MEDS ORDERED: Lidocaine -MPF 2% 5 ML VIAL ONE (07:20)
[2021-04-02] MEDS ORDERED: *HR* Propofol 200 MG/20 ML VIAL IVP ONE (07:20)
[2021-04-02] MEDS ORDERED: *HR* FentaNYL (PF) 100 MCG/2 ML VIAL ONE (07:20)
[2021-04-02] MEDS ORDERED: *HR* Rocuronium Bromide 50 MG/5 ML VIAL ONE (07:20)
[2021-04-02] MEDS ORDERED: *HR* Midazolam HCl 2 MG/2 ML VIAL ONE (07:20)
[2021-04-02] MEDS ORDERED: *HR* Remifentanil 2 MG VIAL IVP ONE (07:20)
[2021-04-02] MEDS ORDERED: Lidocaine -MPF 4% 5 ML AMPUL ONE (07:20)
[2021-04-02] MEDS ORDERED: Ondansetron 4 MG/2 ML VIAL ONE (07:20)
[2021-04-02] MEDS ORDERED: *HR* Phenylephrine 10 MG/ML VIAL ONE (07:21)
[2021-04-02] MEDS ORDERED: Polymyxin B Sulfate 500,000 UNIT, Sodium Chloride IRRigation 1,000 ML IR ONE (08:00)
[2021-04-02] MEDS ORDERED: *HR* Methadone 5 MG TABLET PO ONE (08:00)
[2021-04-02] MEDS ORDERED: *HR* HYDROmorphone PF 0.5 MG/0.5 ML SYRINGE IVP PRN (10:19)
[2021-04-02] MEDS ORDERED: EPHEDrine 50 MG/ML VIAL ONE (10:44)
[2021-04-02] MEDS ORDERED: *HR* HYDROMORPHONE 2 MG/ML VIAL ONE (11:28)
[2021-04-02] MEDS ORDERED: Naloxone 0.4 MG/ML INJ IVP PRN (13:56)
[2021-04-02] MEDS ORDERED: Ondansetron 4 MG/2 ML VIAL IVP PRN (13:56)
[2021-04-02] MEDS ORDERED: Acetaminophen 325 MG TABLET PO PRN (13:56)
[2021-04-02] MEDS: *HR* OxyCODONE Immed Rel 5 MG TABLET PO PRN (15:30)
[2021-04-02] MEDS: Ringers Solution, Lactated 1,000 ML IVC SCH (15:46)
[2021-04-02] MEDS: CeFAZolin 2 GM/120 ML BAG IVPB SCH (17:06)
[2021-04-02] MEDS: Insulin NPH/REG 70/30 100 UNIT/ML (x5UNIT) SUBQ SCH (17:07)
[2021-04-02] MEDS: Ipratropium/Albuterol Neb 3 ML IH SCH ×2 (20:07→21:07)
[2021-04-02] MEDS: Insulin DETEMIR 100 UNIT/ML X5UNITS SUBQ SCH (20:08)
[2021-04-02] MEDS: *HR* HYDROcodone/Acet 5/325 mg TABLET PO PRN (20:08)
[2021-04-03] MEDS: CeFAZolin 2 GM/120 ML BAG IVPB SCH (00:29)
[2021-04-03] MEDS: *HR* HYDROcodone/Acet 5/325 mg TABLET PO PRN ×2 (05:38→21:50)
[2021-04-03] MEDS: Ipratropium/Albuterol Neb 3 ML IH SCH ×4 (07:00→20:27)
[2021-04-03] MEDS: Multivit/Ca/Min/Fe/FA 1 TAB TABLET PO SCH (07:34)
[2021-04-03] MEDS: Aspirin Enteric Coated 81 MG Tablet PO SCH (07:34)
[2021-04-03] MEDS: lisinopriL 20 MG TABLET PO SCH (07:35)
[2021-04-03] MEDS: amLODIPine 5 MG TABLET PO SCH (07:35)
[2021-04-03] MEDS: Ringers Solution, Lactated 1,000 ML IVC SCH ×2 (07:36→21:41)
[2021-04-03] MEDS: Insulin NPH/REG 70/30 100 UNIT/ML (x5UNIT) SUBQ SCH ×2 (07:36→17:30)
[2021-04-03] MEDS: *HR* OxyCODONE Immed Rel 5 MG TABLET PO PRN ×2 (13:29→19:38)
[2021-04-03] MEDS ORDERED: Simethicone 80 MG TAB.CHEW PO PRN (13:52)
[2021-04-03] MEDS: Insulin DETEMIR 100 UNIT/ML X5UNITS SUBQ SCH (21:34)
[2021-04-04] MEDS: *HR* OxyCODONE Immed Rel 5 MG TABLET PO PRN ×5 (00:39→19:46)
[2021-04-04] MEDS: Ipratropium/Albuterol Neb 3 ML IH SCH ×4 (04:18→20:53)
[2021-04-04] MEDS: Multivit/Ca/Min/Fe/FA 1 TAB TABLET PO SCH (09:04)
[2021-04-04] MEDS: amLODIPine 5 MG TABLET PO SCH (09:04)
[2021-04-04] MEDS: lisinopriL 20 MG TABLET PO SCH (09:04)
[2021-04-04] MEDS: Aspirin Enteric Coated 81 MG Tablet PO SCH (09:04)
[2021-04-04] MEDS: Insulin NPH/REG 70/30 100 UNIT/ML (x5UNIT) SUBQ SCH ×2 (10:14→17:58)
[2021-04-04] MEDS: Ringers Solution, Lactated 1,000 ML IVC SCH (12:09)
[2021-04-04] MEDS: Levalbuterol 1 PUFF INHALER IH SCH ×2 (20:22→20:56)
[2021-04-04] MEDS: Insulin DETEMIR 100 UNIT/ML X5UNITS SUBQ SCH (20:23)
[2021-04-05] MEDS: Ipratropium/Albuterol Neb 3 ML IH SCH ×4 (04:13→20:51)
[2021-04-05] MEDS: Multivit/Ca/Min/Fe/FA 1 TAB TABLET PO SCH (08:14)
[2021-04-05] MEDS: Aspirin Enteric Coated 81 MG Tablet PO SCH (08:14)
[2021-04-05] MEDS: lisinopriL 20 MG TABLET PO SCH (08:14)
[2021-04-05] MEDS: amLODIPine 5 MG TABLET PO SCH (08:14)
[2021-04-05] MEDS: Insulin NPH/REG 70/30 100 UNIT/ML (x5UNIT) SUBQ SCH ×2 (08:15→17:44)
[2021-04-05] MEDS: *HR* OxyCODONE Immed Rel 5 MG TABLET PO PRN ×2 (08:19→20:17)
[2021-04-05] MEDS: Levalbuterol 1 PUFF INHALER IH SCH ×4 (08:20→20:20)
[2021-04-05] MEDS: Insulin DETEMIR 100 UNIT/ML X5UNITS SUBQ SCH (20:20)
[2021-04-06] MEDS: Ipratropium/Albuterol Neb 3 ML IH SCH ×4 (04:12→21:17)
[2021-04-06] MEDS: Levalbuterol 1 PUFF INHALER IH SCH ×4 (04:13→21:17)
[2021-04-06] MEDS: *HR* OxyCODONE Immed Rel 5 MG TABLET PO PRN ×2 (05:26→17:54)
[2021-04-06] MEDS: Aspirin Enteric Coated 81 MG Tablet PO SCH (11:19)
[2021-04-06] MEDS: Multivit/Ca/Min/Fe/FA 1 TAB TABLET PO SCH (11:19)
[2021-04-06] MEDS: Insulin NPH/REG 70/30 100 UNIT/ML (x5UNIT) SUBQ SCH ×2 (11:19→17:54)
[2021-04-06] MEDS: lisinopriL 20 MG TABLET PO SCH (11:19)
[2021-04-06] MEDS: amLODIPine 5 MG TABLET PO SCH (11:19)
[2021-04-06] MEDS: *HR* HYDROcodone/Acet 5/325 mg TABLET PO PRN ×2 (11:19→21:20)
[2021-04-06 12:16] LABS: Basophils % 0.2 %; Eosinophils # 0.2 K/mcL (0.0-0.6); Eosinophils % 2.3 %; Hemoglobin 11.9 g/dL (12.9-16.9); Immature Granulocytes % 0.1 % (0-4); Lymphocytes # 1.4 K/mcL (0.6-4.6); Lymphocytes % 17.8 %; Mean Corpuscular HGB Conc 33.1 g/dL (31.6-35.5); Mean Corpuscular Hemoglobin 36.1 pg (28.0-33.3); Mean Corpuscular Volume 109.1 fL (83.0-100.0); Mean Platelet Volume 9.4 fL (9.4-12.4); Monocytes # 0.8 K/mcL (0.0-1.3); Monocytes % 10.1 %; Neutrophils # 5.6 K/mcL (1.6-8.9); Platelet Count 211 K/mcL (140-400); Red Cell Distribution Width 12.4 % (11.5-14.5); Segmented Neutrophils % 69.5 %; White Blood Count 8.1 K/mcL (4.3-11.1)
[2021-04-06 12:35] LABS: Calcium 9.1 mg/dL (8.6-10.3); Potassium 4.1 mEq/L (3.5-5.1)
[2021-04-06] MEDS: Insulin DETEMIR 100 UNIT/ML X5UNITS SUBQ SCH (21:39)
[2021-04-07] MEDS: *HR* OxyCODONE Immed Rel 5 MG TABLET PO PRN ×3 (03:49→15:14)
[2021-04-07] MEDS: Levalbuterol 1 PUFF INHALER IH SCH ×4 (04:03→23:14)
[2021-04-07] MEDS: Ipratropium/Albuterol Neb 3 ML IH SCH ×4 (04:11→23:14)
[2021-04-07] MEDS: Aspirin Enteric Coated 81 MG Tablet PO SCH (08:40)
[2021-04-07] MEDS: Insulin NPH/REG 70/30 100 UNIT/ML (x5UNIT) SUBQ SCH ×2 (08:41→17:27)
[2021-04-07] MEDS: Multivit/Ca/Min/Fe/FA 1 TAB TABLET PO SCH (08:41)
[2021-04-07] MEDS: lisinopriL 20 MG TABLET PO SCH (08:41)
[2021-04-07] MEDS: amLODIPine 5 MG TABLET PO SCH (08:41)
[2021-04-07 11:27] LABS: Adenovirus Not Detected (Not Detect); Bordetella Pertussis Not Detected (Not Detect); Chlamydophila pneumoniae Not Detected (Not Detect); Coronavirus 229E Not Detected (Not Detect); Coronavirus HKU1 Not Detected (Not Detect); Coronavirus NL63 Not Detected (Not Detect); Coronavirus OC43 Not Detected (Not Detect); Human Metapneumovirus Not Detected (Not Detect); Human Rhinovirus/Enterovirus Not Detected (Not Detect); Influenza A Subtype 2009 H1 Not Detected (Not Detect); Influenza B Not Detected (Not Detect); Mycoplasma pneumoniae Not Detected (Not Detect); Parainfluenza Virus 1 Not Detected (Not Detect); Parainfluenza Virus 2 Not Detected (Not Detect); Parainfluenza Virus 3 Not Detected (Not Detect); Parainfluenza Virus 4 Not Detected (Not Detect); Respiratory Syncytial Virus Not Detected (Not Detect); SARS-CoV-2 Not Detected (Not Detect)
[2021-04-07 13:40] LABS: Hematocrit 37.3 % (37.5-50.1); Hemoglobin 12.2 g/dL (12.9-16.9); Mean Corpuscular HGB Conc 32.7 g/dL (31.6-35.5); Mean Corpuscular Hemoglobin 36.4 pg (28.0-33.3); Mean Corpuscular Volume 111.3 fL (83.0-100.0); Mean Platelet Volume 9.4 fL (9.4-12.4); Platelet Count 240 K/mcL (140-400); Red Blood Count 3.35 M/mcL (4.19-5.50); Red Cell Distribution Width 12.2 % (11.5-14.5); White Blood Count 8.1 K/mcL (4.3-11.1)
[2021-04-07 14:08] LABS: Calcium 9.7 mg/dL (8.6-10.3); Potassium 4.8 mEq/L (3.5-5.1)
[2021-04-07 14:11] LABS: Thyroid Stimulating Hormone 3.885 mcIU/mL (0.340-5.600)
[2021-04-07 14:38] LABS: Basophils # 0.2 K/mcL (0.0-0.2); Eosinophils # 0.2 K/mcL (0.0-0.6); Lymphocytes # 2.9 K/mcL (0.6-4.6); Monocytes # 0.2 K/mcL (0.0-1.3); Neutrophils # 4.7 K/mcL (1.6-8.9); Reactive Lymphocytes Present (Not Present)
[2021-04-07 14:39] LABS: Platelet Estimate Normal (Normal)
[2021-04-07 14:40] LABS: Platelet Clumps Few (Not Present)
[2021-04-07] MEDS: Insulin DETEMIR 100 UNIT/ML X5UNITS SUBQ SCH (21:08)
[2021-04-07] MEDS: Budesonide Neb 0.5 MG/2 ML IH SCH (23:14)
[2021-04-08] MEDS: *HR* OxyCODONE Immed Rel 5 MG TABLET PO PRN ×3 (00:26→17:18)
[2021-04-08] MEDS: Levalbuterol 1 PUFF INHALER IH SCH ×3 (03:20→17:49)
[2021-04-08] MEDS: Ipratropium/Albuterol Neb 3 ML IH SCH ×3 (03:22→17:49)
[2021-04-08] MEDS: Budesonide Neb 0.5 MG/2 ML IH SCH (07:53)
[2021-04-08] MEDS: Aspirin Enteric Coated 81 MG Tablet PO SCH (08:30)
[2021-04-08] MEDS: lisinopriL 20 MG TABLET PO SCH (08:31)
[2021-04-08] MEDS: amLODIPine 5 MG TABLET PO SCH (08:31)
[2021-04-08] MEDS: Multivit/Ca/Min/Fe/FA 1 TAB TABLET PO SCH (08:31)
[2021-04-08] MEDS: Insulin NPH/REG 70/30 100 UNIT/ML (x5UNIT) SUBQ SCH (08:31)
[2021-04-08] MEDS ORDERED: Isovue-370 500 ML BOTTLE IVP ONE (08:59)
[2021-04-08 09:23] LABS: Calcium 9.5 mg/dL (8.6-10.3); Potassium 4.4 mEq/L (3.5-5.1)
[2021-04-08 15:17] VITALS: BP 102/61; PULSE 88; TEMP 98.3; O2SAT 94
[2021-04-08] MEDS: Insulin DETEMIR 100 UNIT/ML X5UNITS SUBQ SCH (17:35)
== END 2021-04-08 18:30 | disposition home health service (06) ==
LOC: SDCAOSI 06:35 → 4WAOSI 06:35 → SUATTDRO 04-03 13:43
PROVIDERS: ADMIT Orthopaedic Surgery Orthopaedic Surgery of the Spine; ATTEND Internal Medicine